=== PATIENT | male | born 2000 | race Caucasian/White ===

== ENCOUNTER 2023-04-27 17:25 | Inpatient (IN) | payer MEDICAID ==
[~2023-04-27] VITALS: Ht 172.7 cm; Wt 75.7 kg
[2023-04-27 17:44] VITALS: BP 105/57; PULSE 84; RESP 17; TEMP 97.4; O2SAT 99
[2023-04-27 18:05] VITALS: O2SAT 99
[2023-04-27 18:12] LABS: BASOPHILS % (AUTO) 0.4 % (0.0-2.0); EOSINOPHILS # (AUTO) 0.1 K/uL (0-0.4); EOSINOPHILS % (AUTO) 1.2 % (0.0-4.0); HEMATOCRIT 37.2 % (36-52); HEMOGLOBIN 12.6 g/dL (12.0-18.0); LYMPHOCYTES % (AUTO) 20.8 % (20.5-51.1); MEAN CORPUSCULAR HEMOGLOBIN 31 pg (27-31); MEAN CORPUSCULAR HGB CONC 34 g/dL (33-37); MEAN CORPUSCULAR VOLUME 92.2 fL (80-94); MONOCYTES # (AUTO) 0.6 K/uL (0.8-1.0); NEUTROPHILS # (AUTO) 3.3 K/uL (1.8-7.7); NEUTROPHILS % (AUTO) 65.6 % (42.2-75.2); PLATELET COUNT (AUTO) 217 K/uL (140-450); RED BLOOD CELL COUNT(AUTO) 4.04 MIL/uL (4.20-6.10); RED CELL DISTRIBUTION WIDTH 14.9 % (11.6-13.7)
[2023-04-27 18:38] LABS: ACETAMINOPHEN < 0.5 ug/ml (10-30); ALANINE AMINOTRANSFERASE 45 U/L (12-78); ALBUMIN 3.8 g/dL (3.4-5.0); ALCOHOL, BLOOD < 3 mg/dL (<10); ALKALINE PHOSPHATASE 87 U/L (50-136); ANION GAP 15.7 (8-16); ASPARTATE AMINOTRANSFERASE 37 U/L (15-37); CARBON DIOXIDE 25.2 mmol/L (21-32); CHLORIDE 103 mmol/L (98-107); GFR ARICAN-AMERICAN 120 mL/min (>90); GFR NON ARICAN-AMERICAN 99 mL/min (>90); GLUCOSE 92 mg/dL (74-106); POTASSIUM 3.9 mmol/L (3.5-5.1); SALICYLATE < 2.8 mg/dL (2.8-20.0); SODIUM SERUM 140 mmol/L (136-145); TOTAL BILIRUBIN 0.3 mg/dL (0.0-1.0); TOTAL PROTEIN, SERUM 7.2 g/dL (6.4-8.2); UREA NITROGEN, BLOOD 9 mg/dL (7-18)
[2023-04-27 20:09] VITALS: O2SAT 99
[2023-04-27 20:12] LABS: APPEARANCE,URINE CLEAR (CLEAR); BILIRUBIN,URINE NEGATIVE (NEGATIVE); BLOOD, URINE NEGATIVE (NEGATIVE); COLOR,URINE YELLOW (YELLOW); LEUKOCYTE ESTERASE ,URINE NEGATIVE (NEGATIVE); NITRITE, URINE NEGATIVE (NEGATIVE); PROTEIN,URINE TRACE (NEGATIVE); UGLUCOSE NEGATIVE (NEGATIVE)
[2023-04-27 20:20] LABS: AMPHETAMINE, URINE NEGATIVE ng/ml (NEG <=1000); BARBITURATE, URINE NEGATIVE ng/ml (NEG <=200); BENZODIAZEPINE, URINE POSITIVE ng/mL (NEG <=200); CANNABINOID, URINE NEGATIVE ng/mL (NEG <=50); COCAINE, URINE NEGATIVE ng/mL (NEG <=300)
[2023-04-27 20:21] LABS: OPIATE, URINE NEGATIVE ng/mL (NEG <=2000); PHENCYCLIDINE SCREEN,URINE NEGATIVE ng/mL (NEG <=25)
[2023-04-27] MEDS ORDERED: OLANZapine 5 MG ODT ONE (21:28)
[2023-04-27] MEDS ORDERED: LORazepam 2 MG/ML VIAL ONE (21:50)
[2023-04-27] MEDS ORDERED: HALOPERIDOL IM 5 MG/ML VIAL IM ONE (21:50)
[2023-04-27] MEDS ORDERED: HALOPERIDOL IM 5 MG/ML VIAL ONE (21:50)
[2023-04-27] MEDS ORDERED: LORazepam 2 MG/ML VIAL IM ONE (21:50)
[2023-04-27] MEDS ORDERED: diphenhydrAMINE 50 MG/ML VIAL IVP ONE (22:05)
[2023-04-27] MEDS ORDERED: diphenhydrAMINE 50 MG/ML VIAL ONE (22:08)
[2023-04-27] MEDS ORDERED: OLANZapine 10 MG VIAL IM ONE (22:10)
[2023-04-27] MEDS: OLANZapine 5 MG ODT SL PRN (22:12)
[2023-04-27 22:24] VITALS: O2SAT 99
[2023-04-28] VITALS (11 sets, daily range): O2SAT 98
[2023-04-28] MEDS: OLANZapine 5 MG ODT PO SCH ×2 (09:00→21:07)
[2023-04-29 00:20] VITALS: O2SAT 98
[2023-04-29 02:39] VITALS: O2SAT 98
[2023-04-29 04:53] VITALS: O2SAT 98
[2023-04-29] MEDS: OLANZapine 5 MG ODT PO SCH ×2 (09:32→21:00)
[2023-04-29] MEDS ORDERED: BACITRACIN OINT 500 UNITS/GM PKT TP ONE ×2 (17:05→17:06)
[2023-04-29] MEDS: OLANZapine 5 MG ODT SL PRN (19:26)
[2023-04-29] MEDS ORDERED: HALOPERIDOL IM 5 MG/ML VIAL IM ONE (19:35)
[2023-04-29] MEDS ORDERED: LORazepam 2 MG/ML VIAL IM ONE (19:35)
[2023-04-29] MEDS ORDERED: HALOPERIDOL IM 5 MG/ML VIAL ONE (19:36)
[2023-04-29] MEDS ORDERED: LORazepam 2 MG/ML VIAL ONE (19:36)
[2023-04-29] MEDS ORDERED: MIDAZOLAM 5 MG/5 ML VIAL ONE (19:55)
[2023-04-29] MEDS ORDERED: MIDAZOLAM 2 MG/2 ML VIAL IM ONE (19:55)
[2023-04-30] MEDS: OLANZapine 5 MG ODT PO SCH ×2 (09:00→21:24)
[2023-04-30] MEDS ORDERED: diphenhydrAMINE 50 MG CAP PO ONE (20:05)
[2023-05-01 08:00] VITALS: O2SAT 97
[2023-05-01] MEDS: OLANZapine 5 MG ODT PO SCH ×2 (09:58→21:55)
[2023-05-01 12:06] VITALS: O2SAT 98
[2023-05-01] MEDS: OLANZapine 5 MG ODT SL PRN (13:43)
[2023-05-01 17:56] VITALS: O2SAT 98
[2023-05-01] MEDS ORDERED: LORazepam 2 MG/ML VIAL IM/IVP STA (21:17)
[2023-05-01] MEDS ORDERED: HALOPERIDOL IM 5 MG/ML VIAL IM ONE (21:20)
[2023-05-02] MEDS: OLANZapine 5 MG ODT PO SCH ×2 (09:09→21:46)
[2023-05-02 17:17] VITALS: PULSE 68; RESP 20
[2023-05-02 20:00] VITALS: BP 110/59; RESP 20; TEMP 97.8; O2SAT 99
[2023-05-02] MEDS ORDERED: OLANZapine 5 MG ODT SL PRN (22:00)
[2023-05-02] MEDS: MELATONIN 3 MG TAB PO PRN (23:17)
[2023-05-03 04:00] VITALS: BP 107/51; PULSE 59; RESP 20; TEMP 97.7; O2SAT 100
[2023-05-03 08:00] VITALS: BP 107/62; PULSE 76; RESP 18; TEMP 98.1; O2SAT 99
[2023-05-03] MEDS: OLANZapine 5 MG ODT PO SCH ×2 (09:19→21:51)
[2023-05-03 16:00] VITALS: BP 108/61; PULSE 69; RESP 18; TEMP 98; O2SAT 99
[2023-05-03] MEDS ORDERED: OLAN15TA1 PO (17:15)
[2023-05-03] MEDS ORDERED: MELA1TAB32 PO (17:16)
[2023-05-03 17:23] VITALS: BP 108/61; PULSE 69; RESP 18; TEMP 98
[2023-05-03 20:00] VITALS: BP 114/68; PULSE 52; RESP 18; TEMP 96.9; O2SAT 100
[2023-05-03] MEDS: MELATONIN 3 MG TAB PO PRN (21:53)
[2023-05-04 04:00] VITALS: BP 120/64; PULSE 64; RESP 18; TEMP 97.6; O2SAT 98
[2023-05-04 08:00] VITALS: BP 111/71; PULSE 67; RESP 16; TEMP 97.8; O2SAT 100
[2023-05-04] MEDS: OLANZapine 5 MG ODT PO SCH ×2 (08:30→20:30)
[2023-05-04] MEDS ORDERED: MELA3TAB21 PO (11:28)
[2023-05-04] MEDS ORDERED: OLAN5ODT9 PO (11:28)
[2023-05-04] MEDS ORDERED: LORazepam 1 MG TAB PO PRN (12:15)
[2023-05-04 16:00] VITALS: BP 103/56; PULSE 65; RESP 18; TEMP 98.8; O2SAT 100
[2023-05-04 20:00] VITALS: BP 119/72; PULSE 68; RESP 17; TEMP 97.9; O2SAT 99
[2023-05-05 08:00] VITALS: PULSE 69; RESP 18; O2SAT 100
[2023-05-05] MEDS: OLANZapine 5 MG ODT PO SCH (09:39)
[2023-05-10] MEDS ORDERED: OLAN15TA1 PO (11:22)
[2023-05-10] MEDS ORDERED: MELA10CA PO (11:22)
[2023-05-10] MEDS ORDERED: OLAN2.5T1 PO (11:22)
== END 2023-05-05 11:06 | disposition home or self-care (01) | DRG 750 ==
LOC: MED 17:25 → MMU 04-29 15:25 → OBSVTOIN 05-02 15:26 → MTU 05-02 16:29
PROVIDERS: ADMIT Student in an Organized Health Care Education/Training Program; ATTEND Student in an Organized Health Care Education/Training Program
DX: F20.9 Schizophrenia, unspecified (principal); F79 Unspecified intellectual disabilities; F42.9 Obsessive-compulsive disorder, unspecified; F91.1 Conduct disorder, childhood-onset type; F84.0 Autistic disorder; R45.1 Restlessness and agitation
CPT/HCPCS: 96372; G0378; 36415; 73130; 80053; 80305; 81003; 85025; 87635-QW; 96374; 99291; C9803-CS; G0480; G0482; J1200; J1630; J2060; J2250